=== PATIENT | male | born 1975 | race Caucasian/White ===

== ENCOUNTER 2021-02-11 13:15 | Emergency (ER) | payer BC ==
[~2021-02-11] VITALS: Ht 182.9 cm; Wt 114.4 kg
[2021-02-11 14:09] LABS: BASOPHILS % (AUTO) 1 % (0-1); EOSINOPHILS % (AUTO) 3 % (1-7); LYMPHOCYTES % (AUTO) 32 % (22-44); MEAN CORPUSCULAR HEMOGLOBIN 30.9 pg (27.5-34.5); MEAN CORPUSCULAR HGB CONC 33.8 g/dL (33.2-36.2); MEAN PLATELET VOLUME 7.5 fL (7.4-10.4); MONOCYTES % (AUTO) 11 % (2-9); NEUTROPHILS % (AUTO) 53 % (42-75); PLATELET COUNT 242 x10^3/uL (130-400); RED BLOOD COUNT 5.52 x10^6/uL (4.38-5.82); RED CELL DISTRIBUTION WIDTH 14.1 % (9.4-14.8)
[2021-02-11 14:13] LABS: ALANINE AMINOTRANSFERASE 59 U/L (12-78); ALBUMIN 4.3 g/dL (3.4-5.0); ANION GAP 6 mmol/L (5-15); CALCIUM 9.5 mg/dL (8.5-10.1); CHLORIDE 105 mmol/L (98-107); CREATININE 0.91 mg/dL (0.7-1.3)
[2021-02-11 14:18] LABS: ALKALINE PHOSPHATASE 41 U/L (45-117); BILIRUBIN,TOTAL 0.6 mg/dL (0.2-1.0); TOTAL PROTEIN 8.1 g/dL (6.4-8.2); TROPONIN I < 0.015 ng/mL (0.000-0.045)
--- NOTE | 2021-02-11 15:57 | NUR ---
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
[2021-02-11 16:17] VITALS: BP 145/92
--- NOTE | 2021-02-11 16:17 | NUR ---
PT AMBULATORY TO ROOM 31 W/ FEELING SHAKY. CHECKED BP AND NOTED TO BE SBP 203 AT HOME. PT CAME TO ED AND NOTED TO HAVE HIGH DBP IN TRIAGE. MONITORS APPLIED AND BP NOTED TO BE LOWER IN ROOM AND PT STATES HE FEELS BETTER. DANIELLE ESCOTO AT BEDSIDE FOR EVAL. NAVARRETE.
--- NOTE | 2021-02-11 16:46 | NUR ---
Patient given discharge instructions and they have confirmed that they understand the instructions. Patient ambulatory with steady gait.
== END 2021-02-11 16:52 | disposition home or self-care (01) ==
LOC: ED 16:46
DX: I10 Essential (primary) hypertension (principal); R42 Dizziness and giddiness; R07.9 Chest pain, unspecified; F17.210 Nicotine dependence, cigarettes, uncomplicated
CPT/HCPCS: 36415; 71045; 80053; 83690; 84484; 85025; 93005; 99285